=== PATIENT | female | born 1985 | race Hispanic/Latino ===

== ENCOUNTER 2023-05-07 12:17 | Emergency (ER) | payer OTHER, SELFPAY ==
[2023-05-07 12:37] VITALS: BP 114/54; PULSE 91; RESP 18; TEMP 36.8; O2SAT 100
--- NOTE | 2023-05-07 12:47 | ED.URI ---
HPI - URI/Sore Throat General Chief Complaint: Upper Respiratory Infection Stated Complaint: cough, sickness Source: patient Mode of arrival: ambulatory Limitations: no limitations History of Present Illness HPI Narrative: 37-year-old female presented for complaint of cough for about 2 weeks. Cough is productive, states she started with brown/yellow mucous and is now white. Started with back and hip pain yesterday. At onset she had sinus congestion and sore throat which has improved. Denies sob, wheezing, n/v/d/f/c. Taking multiple otc meds without relief. States she thinks she had covid last month due to exposure, but did not test. Related Data Home Medications Medication Instructions Recorded Confirmed fluoxetine 10 mg capsule 10 mg PO DAILY 05/07/23 05/07/23 pantoprazole 40 mg tablet,delayed 40 mg PO DAILY 05/07/23 05/07/23 release Allergies Allergy/AdvReac Type Severity Reaction Status Date / Time No Known Allergies Allergy Verified 05/07/23 12:45 Review of Systems Review of Systems: CONSTITUTIONAL: Denies body aches, fever, chills, or sweats. EYES: Denies visual changes, redness, or discharge. ENT: Denies rhinorrhea, congestion, sore throat, or otalgia. CARDIOVASCULAR: Denies chest pain, palpitations, or edema. RESPIRATORY: Reports cough, denies sob, wheezing. GASTROINTESTINAL: Denies abdominal pain, nausea, vomiting, or diarrhea. GENITOURINARY: Denies dysuria or hematuria. SKIN: Denies rash, itching, or wounds. MUSCULOSKELETAL: reports back pain, joint pain NEUROLOGIC: Reports headache, Denies numbness, tingling, or weakness. All systems reviewed & are unremarkable except as noted in HPI and below PMFSH Past Medical History Medical History (Updated 05/07/23 @ 13:04 by Candace Montano, RAMÍREZ) No pertinent past medical history Comments At time of signature, I have reviewed and agree with nursing past medical, surgical, social and family history unless otherwise noted. Please see nursing chart for further information. There is no relevant family history pertinent to the presenting complaint Exam Narrative: GENERAL: Well-appearing, in no acute distress. EYES: EOMI. No redness or drainage. Conjunctivae normal. ENT: Mucous membranes pink and moist. No rhinorrhea. TMs normal bilaterally. Throat normal. Uvula midline. NECK: Normal AROM. Supple. CHEST: No respiratory distress. lungs clear to all salazar. HEART: Regular rate and rhythm. No murmur appreciated. ABDOMEN: Soft, nontender, nondistended, normal active bowel sounds. SKIN: Warm, dry, no rash. Capillary refill normal. Normal skin turgor. NEURO: Alert and oriented x3. Gait steady. PSYCH: Normal affect. Course Course Emergency Course: Patient is aware of diagnosis, understands and agrees to treatment plan. Anticipatory guidance given. Patient agrees to follow-up as directed and is aware of reasons to seek care at the emergency department. Portions of this record may have been created with voice recognition software Level of Care: Express Care Visit Vital Signs Vital signs: Vital Signs Temperature 98.3 F 05/07/23 12:37 Pulse Rate 91 05/07/23 12:37 Respiratory Rate 18 05/07/23 12:37 Blood Pressure 114/54 L 05/07/23 12:37 Pulse Oximetry 100 05/07/23 12:37 Oxygen Delivery Room Air 05/07/23 12:37 Temperature 98.3 F 05/07/23 12:37 Pulse Rate 91 05/07/23 12:37 Respiratory Rate 18 05/07/23 12:37 Blood Pressure 114/54 L 05/07/23 12:37 Pulse Oximetry 100 05/07/23 12:37 Oxygen Delivery Room Air 05/07/23 12:37 MDM - URI/Sore Throat MDM Narrative Medical decision making narrative: Discussed physical exam findings and Rxs. Advised supportive measures and signs/symptoms to go to the ER. Pt is appropriate for outpt treatment and f/u. Differential Diagnosis Differential diagnosis: Likely upper respiratory infection, sinusitis, viral infection, bronchitis and pharyngitis Discharge
== END 2023-05-07 13:01 | disposition home or self-care (01) ==
PROVIDERS: Emergency Provider Nurse Practitioner Family
DX: J40 Bronchitis, not specified as acute or chronic (principal); K21.9 Gastro-esophageal reflux disease without esophagitis; F41.9 Anxiety disorder, unspecified; Z86.16 Personal history of COVID-19
CPT/HCPCS: 99203; G0463

== ENCOUNTER 2024-03-15 11:28 | Emergency (ER) | payer OTHER, SELFPAY ==
--- NOTE | 2024-03-15 11:32 | ED.FEMALEGU ---
HPI - Female Genitourinary General Chief complaint: Urogenital-Female Stated complaint: UTI Time Seen by Provider: 03/15/24 11:31 Source: patient Mode of arrival: ambulatory Limitations: no limitations History of Present Illness HPI Narrative: Celina is a 38-year-old female patient presenting to the clinic today with complaints of possible UTI. She reports she has had burning, frequency, and having urinary urgency for the past week. She has been taking [id number] azo for 3 days for her symptoms. Has not taken azo for the past few days. No fever or chills. Denies any back pain. Does have some lower abdominal discomfort. Related Data Home Medications Medication Instructions Recorded Confirmed pantoprazole 40 mg tablet,delayed 40 mg PO DAILY 05/07/23 03/15/24 release Allergies Allergy/AdvReac Type Severity Reaction Status Date / Time azithromycin AdvReac Mild Itching Verified 03/15/24 11:44 Review of Systems Review of Systems: Pertinent positives per HPI. Patient denies any fever, chills, rash, headache, visual changes, dizziness, cough, shortness of breath, chest pain, palpitations, nausea, vomiting, diarrhea, constipation. [facility] Past Medical History Medical History No pertinent past medical history Comments At the time of my signature, I reviewed and agree with the nursing past medical, surgical, social, and family history. There is no relevant family history pertinent to the patient complaint. Exam Narrative: General: Well-developed, well nourished, in no apparent distress. Head: Normocephalic, atraumatic. Cardio: Regular rate and rhythm, s1 and s2 normal, no murmur appreciated. Resp: Clear to auscultation bilaterally, no rhonchi, rales, wheezing or rubs. Abdomen: Soft, pliable, bowel sounds present in all quadrants, mid lower abdomen tender to palpation, no organomegly, no CVAT tenderness. : Deferred Course Course Emergency Course: Portions of this record may have been created with voice recognition software. Level of Care: Express Care Visit Vital Signs Vital signs: Vital Signs Temperature 37.1 C 03/15/24 11:39 Pulse Rate 69 03/15/24 11:39 Respiratory Rate 16 03/15/24 11:39 Blood Pressure 108/65 03/15/24 11:39 Pulse Oximetry 100 03/15/24 11:39 Oxygen Delivery Room Air 03/15/24 11:39 Temperature 37.1 C 03/15/24 11:39 Pulse Rate 69 03/15/24 11:39 Respiratory Rate 16 03/15/24 11:39 Blood Pressure 108/65 03/15/24 11:39 Pulse Oximetry 100 03/15/24 11:39 Oxygen Delivery Room Air 03/15/24 11:39 Vital signs reviewed MDM - Female Genitourinary MDM Narrative Medical decision making narrative: At the time of visit patient is resting comfortably on the exam table. Patient appears to be nontoxic. Labs: Urinalysis positive for 2+ leukocytes and 2+ blood. We will send urine for culture. Plan: I will place patient on Bactrim DS to treat for UTI. Supportive measures were discussed with the patient and they voiced understanding discharge instructions and agrees to treatment plan. Return precautions reviewed Differential Diagnosis Differential diagnosis: Likely urinary tract infection and cystitis Lab Data Labs: Lab Results 03/15/24 Range/Units 11:44 POC Urine Color Yellow POC Urine Clarity Cloudy POC Urine pH 6.0 POC Ur Specif Admire 1.010 POC Urine Protein Negative (Negative) POC Ur Glucose (UA) Negative (Negative) POC Urine Ketones Negative (Negative) POC Urine Blood 2+ (Negative) POC Urine Nitrite Negative (Negative) POC Urine Bilirubin Negative (Negative) POC Urine Urobilinogen 0.2 POC U Leukocyte Esteras 2+ (Negative) Discharge Plan Discharge Clinical Impression: Urinary tract infection Qualifiers: Urinary tract infection type: acute cystitis Hematuria presence: with hematuria Qualified Code(s):
[2024-03-15 11:39] VITALS: BP 108/65; PULSE 69; RESP 16; TEMP 37.1; O2SAT 100
[2024-03-15 11:46] LABS: EDUAAPPEAR Cloudy; EDUABILI Negative (Negative); EDUABLOOD 2+ (Negative); EDUACOLOR1 Yellow; EDUAGLUCOSE Negative (Negative); EDUAKETONE Negative (Negative); EDUALEUKO 2+ (Negative); EDUANITRATE Negative (Negative); EDUAPROTEIN Negative (Negative); EDUAUROBILI 0.2
== END 2024-03-15 11:53 | disposition home or self-care (01) ==
PROVIDERS: Emergency Provider Nurse Practitioner Family
DX: N30.01 Acute cystitis with hematuria (principal); B96.20 Unspecified Escherichia coli [E. coli] as the cause of diseases classified elsewhere
CPT/HCPCS: 81003; 87077; 87086; 87186; 99213; G0463